=== PATIENT | male | born 1990 | race African-American/Black ===

== ENCOUNTER 2019-03-22 07:26 | Emergency (ER) | payer BC ==
[2019-03-22] MEDS ORDERED: ACETAMINOPHEN 500 MG TABLET (FP) PO ONE (08:09)
[2019-03-22] MEDS ORDERED: KETOROLAC TROMETHAMINE 60 MG/2 ML VIAL IM ONE (08:30)
--- NOTE | 2019-03-22 08:36 | PDOC ---
Attending Attestation - Resident Resident Name: Parth Brar - ED Attending Attestation I have performed the following: I have examined & evaluated the patient, The case was reviewed & discussed with the resident, I agree w/resident's findings & plan - HPI HPI: 03/22/19 08:33 healthy 28y/o M p/w R knee pain and swelling. pt in [facility], no recent injury or strain or unusual activity, while turning in bed last night felt his knee come out of place, immediately put it back into place through some manipulation, had full flexion/extension immediately thereafter, slept the remainder of the night , but awoke this morning with pain and inability to flex his knee. No direct injury, no fevers or chills, no surgical history or history of recurring knee injuries. No motor or sensory deficit. - Physicial Exam PE: 03/22/19 08:34 Vital signs normal Lying comfortably in stretcher talking on his cell phone Right knee: Positive mild to moderate right knee effusion, no gross structural abnormalities, no focal bony tenderness including the patella, limited range of motion secondary to pain, extensor mechanism is intact but with pain. 2+ distal pulses, sensation intact distally, full range of motion with full strength of the ankles and toes. No warmth or cellulitis. - Medical Decision Making 03/22/19 08:35 28-year-old male with atraumatic right knee strain, could be most consistent with patellar dislocation, now relocated with patellar tendon strain and knee effusion. Neurovascular intact. Right knee x-ray Ibuprofen for pain Ice for swelling If within normal limits, will place knee immobilizer and provide crutches with orthopedic follow-up for soft tissue injury
--- NOTE | 2019-03-22 08:40 | PDOC ---
History of Present Illness - General Chief Complaint: Pain, Acute Stated Complaint: LEG PAIN,POSSIBLE DISLOCATION Time Seen by Provider: 03/22/19 07:39 History Source: Patient Exam Limitations: No Limitations - History of Present Illness Initial Comments: 03/23/19 07:17 HPI: 28M no PMH BIBEMS w/ knee pain and inability to ambulate x hours. Pt rolled over in bed around 1am and felt his right knee go out of place. Saw his patella was displaced and moved it back into place. Pt went to sleep asymptomatic with full flexion/extension but woke up this AM with inability to move his right knee due to pain. Pain worse w/ knee flexion; described as burning pain mostly in posterior aspect of thigh. Unable to weight-bear on right leg. Denies f/c, recent trauma. Denies numbness, tingling, weakness. PCP Dr. Claudine Bonds Denies PMH Denies Meds NKDA Denies tobacco use Past History - Past Medical History Allergies/Adverse Reactions: Allergies Allergy/AdvReac Type Severity Reaction Status Date / Time No Known Allergies Allergy Verified 03/22/19 07:46 COPD: No - Psycho Social/Smoking Cessation Hx Smoking History: Never smoked Have you smoked in the past 12 months: No Information on smoking cessation initiated: No Hx Alcohol Use: No Drug/Substance Use Hx: No Review of Systems - Review of Systems Able to Perform ROS?: Yes Comments:: 03/23/19 07:17 ROS: CONSTITUTIONAL: Denies F / C RESP: Denies SOB CARD: Denies chest pain GI: Denies N / V / D, abdominal pain SKIN: Denies rashes NEURO: Denies numbness, tingling, weakness MSK: Denies back pain Is the patient limited Sinhala proficient: No *Physical Exam - Vital Signs Last Vital Signs Temp Pulse Resp BP Pulse Ox 98.0 F 60 16 116/68 100 03/22/19 07:26 03/22/19 07:26 03/22/19 07:26 03/22/19 07:26 03/22/19 07:26 - Physical Exam Comments: 03/23/19 07:17 PE: GEN: Well appearing, NAD, comfortable. AAOx3 HEENT: NC/AT. No facial asymmetry. Normal voice. Supple neck w/ FROM. CV: S1/S2, RRR, no m/r/g LUNG: CTAB, no wheezes, crackles, rales, rhonchi. GI: soft, ndnt, +BS, no guarding, no rebound. No masses. EXTREMITIES: 2+ distal pulses. Limited ROM of R knee 2/2 pain. Mild effusion of the right knee. No erythema or warmth overlying area. FROM right ankle and foot. No joint laxity on lamonte testing. No TTP of bony structures. SKIN: warm, dry, normal turgor PSYCH: normal mood and affect NEURO: 5/5 dorsi/plantar flexion of the R and L foot. Symmetric sensation b/l. ED Treatment Course - RADIOLOGY Radiology Studies Ordered: Category Date Time Status KNEE 2 POS-RIGHT [RAD] Stat Radiology 03/22/19 08:07 Ordered Medical Decision Making - Medical Decision Making 03/22/19 08:27 MDM: 28M BIBEMS for knee pain after rolling in bed. Pt moved patella back in place after incident but now unable to flex or extend right knee 2/2 pain. Atraumatic. +effusion on exam. + limited ROM 2/2 pain. Neurovascularly intact. DDx - patellar dislocation, ligamental tear/strain - Knee films - tylenol, toradol - knee immobilization and crutches - likely DC home w/ ortho f/u 03/22/19 08:52 No acute path on knee films Discussed plan w/ pt who understood and is amenable Assessed ability to ambulate; crutches provided and instructions given by ED team DC home as planned Discharge - Discharge Information Problems reviewed: Yes Clinical Impression/Diagnosis: Knee strain Qualifiers: Encounter type: initial encounter Laterality: right Qualified Code(s): S86.911A - Strain of unspecified muscle(s) and tendon(s) at lower leg level, right leg, initial encounter Condition: Stable Disposition: HOME - Admission No - Follow up/Referral Referrals: Melvin Dietrich DO [Staff Physician] - Boyd Angelo DO [Staff Physician] - - Patient Discharge Instructions Patient Printed Discharge Instructions: DI for Knee Pain Additional Instructions: Take ibuprofen for pain as directed by the label. This can be purchased over the counter. Additionally, use the RICE method to help alleviate the pain: Rest Ice Compress (warm/cold compresses) Elevate the affected area Keep the knee immobilized. Use crutches to assist in walking as needed but you should weight-bear as tolerated. Follow up with Orthopedic Surgery in the next 7-10 days regarding this ED visit. We are referring you to Dr. Dietrich and Dr. Angelo, you may call and schedule an appointment at the number provided. Follow up with your primary care doctor regarding this visit in the next 10 days Immediately return to the nearest Emergency Department if you experience any of the following: - worsening pain - numbness or tingling below the knee - cold limb - new or concerning symptoms - Post Discharge Activity Work/Back to School Note: Back to Work
[2019-03-22] MEDS ORDERED: ACETAMINOPHEN 325 MG TABLET (FP) ONE (08:49)
[2019-03-22] MEDS ORDERED: KETOROLAC TROMETHAMINE 60 MG/2 ML VIAL ONE (08:49)
[2019-03-22 09:00] VITALS: BP 116/68; PULSE 60; TEMP 98; BMI 24.4
== END 2019-03-22 09:51 | disposition home or self-care (01) ==
LOC: JER 07:26
PROC: 2W3QXYZ Immobilization of Right Lower Leg using Other Device (ICD-10-PCS; principal; 2019-03-22)
DX: S86.811A Strain of other muscle(s) and tendon(s) at lower leg level, right leg, initial encounter (principal); X50.9XXA Other and unspecified overexertion or strenuous movements or postures, initial encounter; Y93.89 Activity, other specified; Y92.032 Bedroom in apartment as the place of occurrence of the external cause; Y99.8 Other external cause status
CPT/HCPCS: 73560-TC-RT-FY; 99282-25

== ENCOUNTER 2019-04-02 12:24 | Day surgery (SDC) | payer BC ==
[2019-03-31 14:43] VITALS: BMI 28.7
--- NOTE | 2019-04-02 07:30 | HP ---
History & Physical Update - Physical Physical: No Change - Assessment Assessment: No Change - Plan Plan: No Change
[2019-04-02] MEDS ORDERED: MIDAZOLAM HCL 2 MG/2 ML SINGLE DOSE VIAL ONE (15:33)
[2019-04-02] MEDS ORDERED: EPHEDRINE SULFATE/0.9% NACL/PF 50 MG/10 ML SYRINGE NR ONE (16:42)
[2019-04-02] MEDS ORDERED: SUCCINYLCHOLINE CHLORIDE 200 MG/10 ML SYRINGE ONE (17:20)
[2019-04-02] MEDS ORDERED: BUPIVACAINE HCL/PF 2.5 MG/ML - 30 ML VIAL IJ ONE (17:36)
[2019-04-02] MEDS ORDERED: oxyCODONE HCL 5 MG TABLET PO PRN ×2 (18:09)
[2019-04-02] MEDS ORDERED: ONDANSETRON 4 MG/2 ML VIAL IVPUSH PRN (18:09)
--- NOTE | 2019-04-02 18:10 | OPR ---
DATE OF PROCEDURE: 04/02/19 TITLE OF OPERATION: Right knee diagnostic arthroscopy, lateral meniscus repair, partial medial meniscectomy, synovectomy. PREOPERATIVE DIAGNOSIS: Right knee lateral meniscus tear, synovitis. POSTOPERATIVE DIAGNOSIS: Right knee lateral meniscus tear, medial meniscus tear , synovitis. SURGEON: Melvin Dietrich DO MANAGER CLINICAL: Boyd Angelo DO ANESTHESIA: General anesthesia SPECIMEN (BACTERIOLOGICAL, PATHOLOGICAL OR OTHER): Meniscus shavings PROSTHETIC DEVICE/IMPLANT: S[employer]N Fast Fix 360 anchors x 3 COMPLICATIONS: none EBL: minimal TOURNIQUET TIME: n/a INDICATIONS FOR SURGERY: Julio Khan is a 28-year-old male who presented in the preoperative setting with a chief complaint of right knee pain and locked knee, and severe pain after an injury at home. He was diagnosed with a lateral meniscus tear. Based on his pre-injury level of activity, surgical treatment was discussed. The risks and benefits of surgery and anesthesia were discussed in detail including but not limited to continued pain, bleeding, infection, blood clot, scarring, damage to vessels and nerves, MCL tear, failure to obtain the desired result, failure to heal, failure to return to sport or work, and possibility of additional surgery. Understanding the risks and benefits, Julio opted to proceed with surgical management. SURGEONS NARRATIVE: After informed consent was obtained patient was brought to the operating room prepped and draped in usual fashion sterile technique. A timeout was called, site verification was performed and perioperative antibiotics were administered. Examination under anesthesia revealed a negative Luli, negative pivot shift and negative anterior drawer test. Diagnostic arthroscopy was performed through standard anterolateral portal. The 4 mm 30 scope was inserted the knee joint without difficulty. This revealed no significant patellar chondromalacia, but there was synovitis in the patellofemoral compartment. Within the medial compartment there was a tear of the anterior horn of the medial meniscus, as well as synovitis. I used an arthroscopic shaver to perform a medial partial meniscectomy and synovectomy. I estimate I removed approximately 10 percent of the meniscus. The remaining meniscus was intact from root to root. Examination of the notch demonstrated an intact ACL and PCL. I then turned my attention to the lateral compartment. There was a tear at the posterior horn of the lateral meniscus. The tear was shown to be in the in the red white zone. The tear measured approximately 1 cm in width. Using 3 Fast- Fix 360 anchors, I successfully repaired the medial meniscus by placing 2 vertical mattress sutures in the meniscus evenly spaced in the posterior horn. I then placed 1 undersurface anchor to address the undersurface portion of the tear at the posterior horn. This reduced the meniscus nicely, and the tear was stabilized and fixated into appropriate positioning. I thoroughly probed the lateral meniscus and found to be stable and anatomically positioned. I then entered the patellofemoral joint and performed a synovectomy. This completed the procedure, and all arthroscopic tools were removed from the joint. I then closed incisions with 3-0 nylon. A sterile dressing was placed, including xeroform, 4x4s and ABD padding with an DODIE bandage. The patient was placed in a hinged knee ROM brace locked in full extension. Patient tolerated procedure well and arrived recovery in stable condition. The patient will follow up in my office in 14 days for suture removal. He was given a prescription for physical therapy, and a strict PT protocol to follow, as well as Aspirin 325mg QDaily x 30 days. He will remain PWB RLE with crutches, start PT within 7 days, and will follow a strict PT protocol given to him. Melvin Dietrich DO
[2019-04-02] MEDS ORDERED: LACTATED RINGERS SOLUTION 1,000 ML IV SCH (18:15)
[2019-04-02] MEDS ORDERED: oxyCODONE HCL 5 MG TABLET ONE (18:38)
[2019-04-02 19:02] VITALS: TEMP 97.9
[2019-04-02 20:21] VITALS: BP 126/84; PULSE 60
== END 2019-04-02 20:15 | disposition home or self-care (01) ==
LOC: FASU 12:24
PROVIDERS: ATTEND Orthopaedic Surgery Sports Medicine
PROC: 0SQC4ZZ Repair Right Knee Joint, Percutaneous Endoscopic Approach (ICD-10-PCS; 2019-04-02)
PROC: 0SBC4ZZ Excision of Right Knee Joint, Percutaneous Endoscopic Approach (ICD-10-PCS; principal; 2019-04-02 14:00)
DX: S83.281A Other tear of lateral meniscus, current injury, right knee, initial encounter (principal); S83.241A Other tear of medial meniscus, current injury, right knee, initial encounter; M65.861 Other synovitis and tenosynovitis, right lower leg; X58.XXXA Exposure to other specified factors, initial encounter; Y93.9 Activity, unspecified; Y92.9 Unspecified place or not applicable
CPT/HCPCS: 94760